=== PATIENT | male | born 1950 | race African-American/Black ===

== ENCOUNTER 2025-03-19 12:47 | Emergency (ER) | payer MEDICAID ==
[~2025-03-19] VITALS: Ht 188 cm; Wt 92.0 kg
[2025-03-19 13:00] VITALS: O2SAT 99
[2025-03-19 13:59] LABS: BASOPHILS % 1.5 % (0.0-2.0); EOSINOPHILS % 3.8 % (0.0-5.0); HEMATOCRIT. 36.3 % (42.0-52.0); HEMOGLOBIN. 11.2 g/dL (14.0-18.0); LYMPHOCYTES % 42.9 % (20.0-50.0); MEAN PLATELET VOLUME 9.4 fl (7.4-10.4); MONOCYTES % 5.5 % (2.0-8.0); NEUTROPHILS % 46.3 % (40.0-76.0); PLATELET 238 x1000/uL (130-400); RED BLOOD CELL COUNT 4.90 mill/uL (4.7-6.1); RED CELL DISTRIBUTION WIDTH 14.2 % (11.6-14.6)
[2025-03-19 14:13] LABS: CREATININE 0.9 mg/dL (0.6-1.3); UREA NITROGEN BLOOD 6 mg/dL (9-23)
[2025-03-19 14:15] LABS: ASPARTATE AMINOTRANSFERASE 21 IU/L (<34); BILIRUBIN DIRECT 0.3 mg/dL (<=3.0); BILIRUBIN TOTAL 1.0 mg/dL (0.1-1.0); PROTEIN TOTAL 7.6 g/dL (6.0-8.3); TROPONIN I HIGH SENSITIVITY 13 ng/L (3.0-53)
[2025-03-19] MEDS ORDERED: MORPHINE SULFATE 2 MG/ML INJ (NOT FOR IM USE) IV PRN (16:30)
[2025-03-19] MEDS ORDERED: ZOLPIDEM TARTRATE 5MG TABLET PO PRN (16:30)
[2025-03-19] MEDS ORDERED: HYDROCODONE/ACETAMINOPHEN 5/325MG TABLET PO PRN (16:30)
[2025-03-19] MEDS ORDERED: ONDANSETRON HCL 4MG/2ML INJ IV PRN (16:30)
[2025-03-19] MEDS ORDERED: ACETAMINOPHEN 325MG TABLET PO PRN (16:30)
[2025-03-19] MEDS ORDERED: MAGNESIUM/ALUMINUM HYDROXIDE/SIMETHICONE 30ML UDC PO PRN (16:30)
[2025-03-19] MEDS: ISOSORBIDE MONONITRATE 30MG TABLET SR 24HR PO SCH (17:21)
[2025-03-19] MEDS: ENOXAPARIN 100MG/ML SYR SUBCUT SCH (17:42)
[2025-03-19] MEDS ORDERED: ENOXAPARIN 40MG/0.4ML SYR SUBCUT SCH (18:00)
[2025-03-19] MEDS: CLONIDINE 0.1MG TABLET PO PRN (18:22)
[2025-03-19 20:20] VITALS: BP 155/84; PULSE 50; RESP 16; TEMP 36.5; O2SAT 97
[2025-03-19] MEDS: POTASSIUM CHLORIDE 20MEQ/PACKET PO SCH (20:49)
[2025-03-19] MEDS ORDERED: ATORVASTATIN CALCIUM 40MG TABLET PO SCH (21:00)
[2025-03-20] MEDS ORDERED: ASPIRIN 81MG TABLET PO SCH (09:00)
[2025-03-20] MEDS ORDERED: PANTOPRAZOLE SODIUM 40 MG/VIAL IV SCH (09:00)
[2025-03-20] MEDS ORDERED: ENOXAPARIN 100MG/ML SYR SUBCUT SCH (09:00)
== END 2025-03-19 20:42 | disposition short-term general hospital (02) ==
LOC: ER 12:47 → EDBEDREQ 13:35 → EDBEDREQTM 16:08 → CANBEDREQ 17:34 → ER 20:42
DX: R07.89 Other chest pain (principal); E78.5 Hyperlipidemia, unspecified; E87.6 Hypokalemia; I10 Essential (primary) hypertension; Z59.00 Homelessness unspecified; Z79.82 Long term (current) use of aspirin; Z79.899 Other long term (current) drug therapy; Z86.73 Personal history of transient ischemic attack (TIA), and cerebral infarction without residual deficits; Z91.148 Patient's other noncompliance with medication regimen for other reason
CPT/HCPCS: 99285; 93970; 71045; 80076; 80048; 83880; 85025; 84484; 36415; 93005; 96372; J1650